=== PATIENT | female | born 1990 | race Caucasian/White ===

== ENCOUNTER 2017-10-04 00:45 | Inpatient (IN) | payer SELFPAY ==
[2017-10-04] MEDS ORDERED: Nalbuphine 10 MG/1 ML Vial IVPUSH PRN (00:59)
[2017-10-04] MEDS ORDERED: Tranexamic Acid 1,000 MG in Sodium Chloride 0.9% 100 ML IV PRN (00:59)
[2017-10-04] MEDS ORDERED: Water For Irrigation,Sterile 1,000 ML Container IRR PRN (00:59)
[2017-10-04] MEDS ORDERED: Lidocaine 1% 50 ML MDV INJECT PRN (00:59)
[2017-10-04] MEDS ORDERED: Carboprost Tromethamine 250 MCG/1 ML Amp IM PRN (00:59)
[2017-10-04] MEDS ORDERED: Butorphanol 1 MG/ML SDV IVPUSH PRN (00:59)
[2017-10-04] MEDS ORDERED: Methylergonovine 0.2 MG/1 ML Amp IM PRN (00:59)
[2017-10-04] MEDS ORDERED: Misoprostol 200 MCG Tab PO PRN (00:59)
[2017-10-04] MEDS ORDERED: Sodium Chloride 0.9% 10 ML Syringe FLUSH PRN (00:59)
[2017-10-04] MEDS ORDERED: Sodium Chloride 0.9% 2.5 ML Syringe FLUSH PRN (00:59)
[2017-10-04] MEDS ORDERED: Oxytocin/0.9 % Sodium Chloride 30 UNIT/500 ML BAG IV SCH (01:00)
[2017-10-04] MEDS ORDERED: Lactated Ringers 1,000 ML IV SCH (01:00)
[2017-10-04] MEDS ORDERED: Witch Hazel Medicated Pads 40/Jar TOP PRN (01:53)
[2017-10-04] MEDS ORDERED: Ibuprofen 400 MG Tab PO PRN (01:53)
[2017-10-04] MEDS ORDERED: Benzocaine/Menthol 20%-0.5% Spray 78 GM Cannister TOP PRN (01:53)
[2017-10-04] MEDS ORDERED: oxyCODONE 5 MG Tab PO PRN (01:53)
[2017-10-04] MEDS ORDERED: Bisacodyl 10 MG Supp RECTAL PRN (01:53)
[2017-10-04] MEDS ORDERED: Acetaminophen 500 MG Tab PO PRN ×2 (01:53)
[2017-10-04] MEDS ORDERED: Lanolin 100% Cream 7 GM Tube TOP PRN (01:53)
[2017-10-04] MEDS ORDERED: Docusate Sodium 100 MG Cap PO PRN (01:53)
--- NOTE | 2017-10-04 01:56 | PCM.LDHP ---
L&D History of Present Illness - General Date of Service: 10/04/17 Admit Problem/Dx: Patient Status Order with Admit Dx/Problem 10/04/17 01:00 Patient Status [ADT] Routine 10/04/17 01:53 Patient Status [ADT] Routine Admission Diagnosis/Problem Admission Diagnosis/Problem Source of Information: Patient History Limitations: Reports: No Limitations - History of Present Illness Pain Score: 8 Improves with: Reports: None Worsens with: Reports: None Associated Symptoms: Reports: N - Related Data Allergies/Adverse Reactions: Allergies Allergy/AdvReac Type Severity Reaction Status Date / Time No Known Allergies Allergy Verified 12/24/14 13:27 Home Medications: Home Meds . [No Known Home Meds] 12/24/14 [History] Past Medical History - Past Health History Medical/Surgical History: Denies Medical/Surgical History H&P Review of Systems - Review of Systems: Review Of Systems: See Below General: Reports: No Symptoms HEENT: Reports: No Symptoms Pulmonary: Reports: No Symptoms Cardiovascular: Reports: No Symptoms Gastrointestinal: Reports: No Symptoms Genitourinary: Reports: No Symptoms Musculoskeletal: Reports: No Symptoms Skin: Reports: No Symptoms Psychiatric: Reports: No Symptoms Neurological: Reports: No Symptoms Hematologic/Lymphatic: Reports: No Symptoms Immunologic: Reports: No Symptoms L&D Exam - Exam Exam: See Below - Vital Signs Weight: 65.771 kg - OB Specific Fundal Height In cm: 36 Contraction Intensity: Moderate to Strong Movement: Active Heart Tones: Present Presentation: Vertex - Lakhani Score Lakhani Score Cervix Position: Anterior Lakhani Score Consistency: Soft Lakhani Score Effacement: >80% Lakhani Score Dilation: > 5 cm Lakhani Score 's Station: +1, +2 Lakhani Score Total: 13 - Exam General: Alert, Oriented HEENT: PERRLA, Conjunctiva Clear, EACs Clear, EOMI, Hearing Intact, Mucosa Moist & [place], Nares Patent, Normal Nasal Septum, Posterior Pharynx Clear, TMs Clear Neck: Supple, Trachea Midline Lungs: Clear to Auscultation, Normal Respiratory Effort Cardiovascular: Regular Rate, Regular Rhythm GI/Abdominal Exam: Normal Bowel Sounds, Soft, Non-Tender, No Organomegaly, No Distention, No Abnormal Bruit, No Mass, Pelvis Stable Rectal Exam: Normal Exam, Normal Rectal Tone Genitourinary: Normal external exam, Normal bimanual exam, Normal speculum exam Back Exam: Normal Inspection, Full Range of Motion Extremities: Normal Inspection, Normal Range of Motion, Non-Tender, No Pedal Edema, Normal Capillary Refill Skin: Warm, Dry, Intact Neurological: Cranial Nerves Intact, Reflexes Equal Bilateral Psychiatric: Alert, Normal Affect, Normal Mood - Patient Data Lab Results Last 24 hrs: Laboratory Results - last 24 hr 10/04/17 Range/Units 00:55 WBC 13.38 H (4.0-11.0) K/uL RBC 3.87 L (4.30-5.90) M/uL Hgb 11.1 L (12.0-16.0) g/dL Hct 33.5 L (36.0-46.0) % MCV 86.6 (80.0-98.0) fL MCH 28.7 (27.0-32.0) pg MCHC 33.1 (31.0-37.0) g/dL RDW Std Deviation 39.9 (28.0-62.0) fl RDW Coeff of Jyotsna 13 (11.0-15.0) % Plt Count 254 (150-400) K/uL MPV 10.40 (7.40-12.00) fL Result Diagrams: 10/04/17 00:55 Problem List Initiated/Reviewed/Updated: Yes Orders Last 24hrs: Active Orders 24 hr Category Date Time Status Patient Status [ADT] Routine ADT 10/04/17 01:53 Ordered Heart Tones [RC] CONTINUOUS Care 10/04/17 01:00 Active Non Stress Test [RC] PER UNIT ROUTINE Care 10/04/17 01:00 Active May Shower [RC] ASDIRECTED Care 10/04/17 01:00 Active May Shower [RC] ASDIRECTED Care 10/04/17 01:53 Ordered Notify Provider [RC] PRN Care 10/04/17 01:00 Active Up ad Emerald [RC] ASDIRECTED Care 10/04/17 01:00 Active Up ad Emerald [RC] ASDIRECTED Care 10/04/17 01:53 Ordered Vaginal Exam [RC] PRN Care 10/04/17 01:00 Active Vital Signs [RC] PER UNIT ROUTINE Care 10/04/17 01:00 Active Vital Signs [RC] PER UNIT ROUTINE Care 10/04/17 01:53 Ordered HEMOGLOBIN/HEMATOCRIT,HH [HEME] Timed Lab 10/05/17 05:11 Ordered TYPE AND SCREEN [BBK] Routine Lab 10/04/17 01:10 Received Acetaminophen [Tylenol Extra Strength] Med 10/04/17 01:53 Ordered 1,000 mg PO Q4H PRN Acetaminophen [Tylenol Extra Strength] Med 10/04/17 01:53 Ordered 500 mg PO Q4H PRN Benzocaine/Menthol [Dermoplast Pain Relief 20%-0.5% Med 10/04/17 01:53 Ordered [place]] 78 gm TOP ASDIRECTED PRN Bisacodyl [Dulcolax] Med 10/04/17 01:53 Ordered 10 mg RECTAL .ONCE PRN Butorphanol [Stadol] Med 10/04/17 00:59 Active 1 mg IVPUSH Q1H PRN Carboprost Tromethamine [Hemabate DS] Med 10/04/17 00:59 Active 250 mcg IM ASDIRECTED PRN Docusate Sodium [Colace] Med 10/04/17 01:53 Ordered 100 mg PO BID PRN Ibuprofen [Motrin] Med 10/04/17 01:53 Ordered 400 mg PO Q4H PRN Ibuprofen [Motrin] Med 10/04/17 01:53 Ordered 800 mg PO Q6H PRN Lactated Ringers [Ringers, Lactated] 1,000 ml Med 10/04/17 01:00 Active IV ASDIRECTED Lanolin [Lansinoh HPA] Med 10/04/17 01:53 Ordered See Dose Instructions TOP ASDIRECTED PRN Lidocaine 1% [Xylocaine 1%] Med 10/04/17 00:59 Active 50 ml INJECT .ONCE PRN Methylergonovine [Methergine] Med 10/04/17 00:59 Active 0.2 mg IM ASDIRECTED PRN Misoprostol [Cytotec] Med 10/04/17 00:59 Active 200 mcg PO .ONCE PRN Nalbuphine [Nubain] Med 10/04/17 00:59 Active 10 mg IVPUSH Q1H PRN Oxytocin/0.9 % Sodium Chloride [Oxytocin 30 Unit/500 ML Med 10/04/17 01:00 Active -NS] 30 unit in 500 ml IV TITRATE Sodium Chloride 0.9% [Saline Flush] Med 10/04/17 00:59 Active 10 ml FLUSH ASDIRECTED PRN Sodium Chloride 0.9% [Saline Flush] Med 10/04/17 00:59 Active 2.5 ml FLUSH ASDIRECTED PRN Tranexamic Acid [Cyklokapron] 1,000 mg Med 10/04/17 00:59 Active Sodium Chloride 0.9% [Normal Saline] 100 ml IV ONETIME Water For Irrigation,Sterile [Sterile Water for Med 10/04/17 00:59 Active Irrigation] 1,000 ml IRR ASDIRECTED PRN [place] Natalia [Tucks] Med 10/04/17 01:53 Ordered 1 pad TOP ASDIRECTED PRN oxyCODONE Med 10/04/17 01:53 Ordered 5 mg PO Q2H PRN Assess Lochia [WOMSER] Per Unit Routine Ot 10/04/17 01:53 Ordered Assess Uterine Involution [WOMSER] Per Unit Routine Ot 10/04/17 01:53 Ordered Scalp Electrode [WOMSER] Per Unit Routine Ot 10/04/17 01:00 Ordered Peripheral IV Discontinue [OM.PC] Routine Ot 10/04/17 01:53 Ordered Peripheral IV Insertion Adult [OM.PC] Routine Ot 10/04/17 01:00 Ordered Resuscitation Status Routine Resus Stat 10/04/17 00:59 Ordered Medication Orders Acetaminophen (Tylenol Extra Strength) 500 mg PO Q4H PRN PRN Reason: Pain Acetaminophen (Tylenol Extra Strength) 1,000 mg PO Q4H PRN PRN Reason: Pain Benzocaine/Menthol (Dermoplast Pain Relief 20%-0.5% [place]) 78 gm TOP ASDIRECTED PRN PRN Reason: Perineal Comfort Measure Butorphanol Tartrate (Stadol) 1 mg IVPUSH Q1H PRN PRN Reason: Pain Last Admin: 10/04/17 01:43 Dose: 1 mg Carboprost Tromethamine (Hemabate Ds) 250 mcg IM ASDIRECTED PRN PRN Reason: Post Hemorrhage Emollient Ointment (Lansinoh Hpa) 0 gm TOP ASDIRECTED PRN PRN Reason: Sore Nipples Lactated Ringer's (Ringers, Lactated) 1,000 mls @ 150 mls/hr IV ASDIRECTED VICKY Last Admin: 10/04/17 00:57 Dose: 500 mls/hr Oxytocin/Sodium Chloride (Oxytocin 30 Unit/500 Ml-Ns) 30 unit in 500 mls @ 999 mls/hr IV TITRATE VICKY Last Admin: 10/04/17 01:38 Dose: 999 mls/hr Tranexamic Acid 1,000 mg/ (Sodium Chloride) 110 mls @ 660 mls/hr IV ONETIME PRN PRN Reason: Bleeding Ibuprofen (Motrin) 400 mg PO Q4H PRN PRN Reason: Pain Ibuprofen (Motrin) 800 mg PO Q6H PRN PRN Reason: Pain Lidocaine HCl (Xylocaine 1%) 50 ml INJECT .ONCE PRN PRN Reason: Laceration repair Methylergonovine Maleate (Methergine) 0.2 mg IM ASDIRECTED PRN PRN Reason: Post Hemorrhage Misoprostol (Cytotec) 200 mcg PO .ONCE PRN PRN Reason: Post Hemorrhage Nalbuphine HCl (Nubain) 10 mg IVPUSH Q1H PRN PRN Reason: Pain (severe 7-10) Oxycodone HCl (Oxycodone) 5 mg PO Q2H PRN PRN Reason: Pain Sodium Chloride (Saline Flush) 10 ml FLUSH ASDIRECTED PRN PRN Reason: Keep Vein Open Sodium Chloride (Saline Flush) 2.5 ml FLUSH ASDIRECTED PRN PRN Reason: Keep Vein Open Sterile Water (Sterile Water For Irrigation) 1,000 ml IRR ASDIRECTED PRN PRN Reason: delivery Witch Natalia (Tucks) 1 pad TOP ASDIRECTED PRN PRN Reason: comfort care Assessment/Plan Comment:: No care in active labor.
[2017-10-04] MEDS: Ibuprofen 800 MG Tab PO PRN ×2 (04:15→11:21)
[2017-10-04 09:47] VITALS: BP 130/59
--- NOTE | 2017-10-04 09:51 | OR ---
SURGEON: Dimitris Crocker MD DATE OF PROCEDURE: 10/04/2017 Ms. Smith is a 26 years old patient, supposedly according to a sketchy history, she is para 1-0-0-1. She had no care in this . She does not know when is her due date. She used multiple and a variety of drugs in this , and she presented to the emergency room with active contractions and she moved later on to Labor and Delivery. The patient at the time she moved to Labor and Delivery, was complete, vertex, with bulging bag of water, and she was about 0 to +1 station. The patient was totally uncooperative, and she totally did not respond to the instruction and repeated instruction and tips from me and the nurses personnel. She continued to move around the bed from one side to one side, closed her leg; however, her contractions, we were able to monitor the baby heart rate but sporadically. Prior to the delivery, we really did not know if we were dealing with a term or . Dr. Kurtz, the top lift nailer, was called to attend the delivery, and the patient in-between yelling and screaming and thrashing and pushing and kicking with her leg with the help of midline episiotomy as performed by me, I was able to accomplish the vaginal delivery of a female fetus. She has cried immediately. The cord clamped and handed to the resuscitating team to resuscitate her. Later on the score reported to be 7 and 9. Placenta delivered spontaneous, complete, and intact, and the area of the episiotomy infiltrated with 1% xylocaine and repaired with 3-0 Vicryl continuous in layers. Instrument count was normal. Estimated blood loss was 250-300 mL in this delivery. heart monitoring was sporadic because the patient was not cooperative and it was from the few minutes of monitoring, it seemed to be a category 1. ASIA / MAURI /[id number]
--- NOTE | 2017-10-04 14:03 | PCM.PNPP ---
- General Info Date of Service: 10/04/17 Functional Status: Reports: Pain Controlled - Review of Systems General: Reports: No Symptoms HEENT: Reports: No Symptoms Pulmonary: Reports: No Symptoms Cardiovascular: Reports: No Symptoms Gastrointestinal: Reports: No Symptoms Genitourinary: Reports: No Symptoms Musculoskeletal: Reports: No Symptoms Skin: Reports: No Symptoms Neurological: Reports: No Symptoms Psychiatric: Reports: No Symptoms - General Info Date of Service: 10/04/17 - Patient Data Vital Signs - Most Recent: Last Vital Signs Temp 36.7 C 10/04/17 09:42 Pulse 83 10/04/17 08:00 Resp 20 10/04/17 08:00 BP 130/59 L 10/04/17 08:00 Pulse Ox 98 10/04/17 08:00 Weight - Most Recent: 65.771 kg Lab Results - Last 24 Hours: Laboratory Results - last 24 hr 10/04/17 10/04/17 10/04/17 Range/Units 00:55 01:10 05:25 WBC 13.38 H (4.0-11.0) K/uL RBC 3.87 L (4.30-5.90) M/uL Hgb 11.1 L (12.0-16.0) g/dL Hct 33.5 L (36.0-46.0) % MCV 86.6 (80.0-98.0) fL MCH 28.7 (27.0-32.0) pg MCHC 33.1 (31.0-37.0) g/dL RDW Std Deviation 39.9 (28.0-62.0) fl RDW Coeff of Jyotsna 13 (11.0-15.0) % Plt Count 254 (150-400) K/uL MPV 10.40 (7.40-12.00) fL Urine Opiates Screen NEGATIVE (NEGATIVE) Ur Oxycodone Screen NEGATIVE (NEGATIVE) Urine Methadone Screen NEGATIVE (NEGATIVE) Ur Barbiturates Screen NEGATIVE (NEGATIVE) Ur Phencyclidine Scrn NEGATIVE (NEGATIVE) Ur Amphetamine Screen NEGATIVE (NEGATIVE) U Methamphetamines Scrn POSITIVE (NEGATIVE) U Benzodiazepines Scrn NEGATIVE (NEGATIVE) U Cocaine Metab Screen NEGATIVE (NEGATIVE) U Marijuana (THC) Screen NEGATIVE (NEGATIVE) Blood Type A POSITIVE Antibody Screen NEGATIVE Med Orders - Current: Current Medications Acetaminophen (Tylenol Extra Strength) 500 mg PO Q4H PRN PRN Reason: Pain Last Admin: 10/04/17 13:06 Dose: 500 mg Acetaminophen (Tylenol Extra Strength) 1,000 mg PO Q4H PRN PRN Reason: Pain Last Admin: 10/04/17 08:05 Dose: 1,000 mg Benzocaine/Menthol (Dermoplast Pain Relief 20%-0.5% [place]) 78 gm TOP ASDIRECTED PRN PRN Reason: Perineal Comfort Measure Bisacodyl (Dulcolax) 10 mg RECTAL .ONCE PRN PRN Reason: Constipation Butorphanol Tartrate (Stadol) 1 mg IVPUSH Q1H PRN PRN Reason: Pain Last Admin: 10/04/17 01:43 Dose: 1 mg Carboprost Tromethamine (Hemabate Ds) 250 mcg IM ASDIRECTED PRN PRN Reason: Post Hemorrhage Docusate Sodium (Colace) 100 mg PO BID PRN PRN Reason: Constipation Emollient Ointment (Lansinoh Hpa) 0 gm TOP ASDIRECTED PRN PRN Reason: Sore Nipples Lactated Ringer's (Ringers, Lactated) 1,000 mls @ 150 mls/hr IV ASDIRECTED VICKY Last Admin: 10/04/17 00:57 Dose: 500 mls/hr Oxytocin/Sodium Chloride (Oxytocin 30 Unit/500 Ml-Ns) 30 unit in 500 mls @ 999 mls/hr IV TITRATE [facility] Last Admin: 10/04/17 01:38 Dose: 999 mls/hr Tranexamic Acid 1,000 mg/ (Sodium Chloride) 110 mls @ 660 mls/hr IV ONETIME PRN PRN Reason: Bleeding Ibuprofen (Motrin) 400 mg PO Q4H PRN PRN Reason: Pain Ibuprofen (Motrin) 800 mg PO Q6H PRN PRN Reason: Pain Last Admin: 10/04/17 11:21 Dose: 800 mg Lidocaine HCl (Xylocaine 1%) 50 ml INJECT .ONCE PRN PRN Reason: Laceration repair Last Admin: 10/04/17 01:45 Dose: 50 ml Methylergonovine Maleate (Methergine) 0.2 mg IM ASDIRECTED PRN PRN Reason: Post Hemorrhage Misoprostol (Cytotec) 200 mcg PO .ONCE PRN PRN Reason: Post Hemorrhage Nalbuphine HCl (Nubain) 10 mg IVPUSH Q1H PRN PRN Reason: Pain (severe 7-10) Oxycodone HCl (Oxycodone) 5 mg PO Q2H PRN PRN Reason: Pain Sodium Chloride (Saline Flush) 10 ml FLUSH ASDIRECTED PRN PRN Reason: Keep Vein Open Sodium Chloride (Saline Flush) 2.5 ml FLUSH ASDIRECTED PRN PRN Reason: Keep Vein Open Sterile Water (Sterile Water For Irrigation) 1,000 ml IRR ASDIRECTED PRN PRN Reason: delivery Amairani Fisher (Tucks) 1 pad TOP ASDIRECTED PRN PRN Reason: comfort care - Interaction Infant Disposition, : Not Applicable - Recovery Exam Fundal Tone: Firm Fundal Level: 1 Fingerbreadths Below Umbilicus Fundal Placement: Midline Lochia Amount: Scant Lochia Color: Rubra/Red Perineum Description: Intact, Minimal Bruising/Swelling Episiotomy/Laceration: Approximated Bladder Status: Voiding Urinary Elimination: Voided - Exam General: Alert, Oriented HEENT: Pupils Equal Neck: Supple Lungs: Clear to Auscultation, Normal Respiratory Effort Cardiovascular: Regular Rate, Regular Rhythm GI/Abdominal Exam: Normal Bowel Sounds, Soft, Non-Tender, No Organomegaly, No Distention, No Abnormal Bruit, No Mass, Pelvis Stable Extremities: Normal Inspection, Normal Range of Motion, Non-Tender, No Pedal Edema, Normal Capillary Refill Skin: Warm, Dry, Intact Wound/Incisions: Healing Well Neurological: No New Focal Deficit Psy/Mental Status: Alert, Normal Affect, Normal Mood - Problem List Review Problem List Initiated/Reviewed/Updated: Yes - My Orders Last 24 Hours: My Active Orders 10/04/17 00:59 Butorphanol [Stadol] 1 mg IVPUSH Q1H PRN Carboprost Tromethamine [Hemabate DS] 250 mcg IM ASDIRECTED PRN Lidocaine 1% [Xylocaine 1%] 50 ml INJECT .ONCE PRN Methylergonovine [Methergine] 0.2 mg IM ASDIRECTED PRN Misoprostol [Cytotec] 200 mcg PO .ONCE PRN Nalbuphine [Nubain] 10 mg IVPUSH Q1H PRN Sodium Chloride 0.9% [Saline Flush] 10 ml FLUSH ASDIRECTED PRN Sodium Chloride 0.9% [Saline Flush] 2.5 ml FLUSH ASDIRECTED PRN Tranexamic Acid [Cyklokapron] 1,000 mg Sodium Chloride 0.9% [Normal Saline] 100 ml IV ONETIME Water For Irrigation,Sterile [Sterile Water for Irrigation] 1,000 ml IRR ASDIRECTED PRN Resuscitation Status Routine 10/04/17 01:00 May Shower [RC] ASDIRECTED Up ad Emerald [RC] ASDIRECTED Vital Signs [RC] PER UNIT ROUTINE Lactated Ringers [Ringers, Lactated] 1,000 ml IV ASDIRECTED Oxytocin/0.9 % Sodium Chloride [Oxytocin 30 Unit/500 ML-NS] 30 unit in 500 ml IV TITRATE Scalp Electrode [WOMSER] Per Unit Routine Peripheral IV Insertion Adult [OM.PC] Routine 10/04/17 01:53 Patient Status [ADT] Routine September Shower [RC] ASDIRECTED Up ad Emerald [RC] ASDIRECTED Vital Signs [RC] PER UNIT ROUTINE Acetaminophen [Tylenol Extra Strength] 1,000 mg PO Q4H PRN Acetaminophen [Tylenol Extra Strength] 500 mg PO Q4H PRN Benzocaine/Menthol [Dermoplast Pain Relief 20%-0.5% [place]] 78 gm TOP ASDIRECTED PRN Bisacodyl [Dulcolax] 10 mg RECTAL .ONCE PRN Docusate Sodium [Colace] 100 mg PO BID PRN Ibuprofen [Motrin] 400 mg PO Q4H PRN Ibuprofen [Motrin] 800 mg PO Q6H PRN Lanolin [Lansinoh HPA] See Dose Instructions TOP ASDIRECTED PRN Witch Natalia [Tucks] 1 pad TOP ASDIRECTED PRN oxyCODONE 5 mg PO Q2H PRN Assess Lochia [WOMSER] Per Unit Routine Assess Uterine Involution [WOMSER] Per Unit Routine Peripheral IV Discontinue [OM.PC] Routine 10/04/17 Breakfast Regular Diet [DIET] 10/05/17 05:11 HEMOGLOBIN/HEMATOCRIT,HH [HEME] Timed - Assessment Assessment:: Gustavon well like to go home. - Plan Plan:: No care in active labor.
== END 2017-10-04 16:00 | disposition home or self-care (01) | DRG 775 ==
LOC: MW.OBCHECK 00:45 → MW.OB 00:48 → MW.OBCHECK 01:00 → MW.OB 01:00 → OBSVTOIN 01:38 → MW.OB 11:47
PROVIDERS: ADMIT Obstetrics & Gynecology; ATTEND Obstetrics & Gynecology
PROC: 10E0XZZ Delivery of Products of Conception, External Approach (ICD-10-PCS; principal; 2017-10-04)
PROC: 0W8NXZZ Division of Female Perineum, External Approach (ICD-10-PCS; 2017-10-04)
DX: O70.0 First degree perineal laceration during delivery (principal); O09.30 Supervision of pregnancy with insufficient antenatal care, unspecified trimester; Z3A.00 Weeks of gestation of pregnancy not specified; Z37.0 Single live birth
CPT/HCPCS: 36415; 59025; 59409; 80305; 85027; 86850; 86900; 86901; A9270-GY; J0595; J2590; J7120

== ENCOUNTER 2023-09-20 10:24 | Emergency (ER) | payer MEDICAID ==
[2023-09-20 10:34] VITALS: BP 133/74; PULSE 67
[2023-09-20] MEDS: Sodium Chloride 0.9% 1,000 ML IV ONE (10:49)
[2023-09-20] MEDS: Morphine 4 MG/ML Syringe IVPUSH ONE (10:49)
[2023-09-20] MEDS: Ondansetron 4 MG/2 ML SDV IVPUSH ONE (10:49)
[2023-09-20 10:51] LABS: BASOPHILS ABSOLUTE AUTO 0.04 K/uL (0.00-0.20); BASOPHILS PERCENT AUTO 0.3 % (0.0-1.0); EOSINOPHILS ABSOLUTE AUTO 0.11 K/uL (0.00-0.45); HEMATOCRIT 37.3 % (37.0-47.0); HEMOGLOBIN 12.5 g/dL (12.0-16.0); IMMATURE GRAN ABSOLUTE AUTO 0.02 K/uL (0.00-0.05); IMMATURE GRAN PERCENT AUTO 0.2 % (0.0-0.4); LYMPHOCYTES ABSOLUTE AUTO 1.67 K/uL (1.00-4.80); LYMPHOCYTES PERCENT AUTO 14.5 % (24.0-44.0); MEAN CORPUSCULAR HEMOGLOBIN 28.7 pg (28.0-32.0); MEAN CORPUSCULAR HGB CONC 33.5 g/dL (32.0-36.0); MEAN CORPUSCULAR VOLUME 85.6 fL (83.0-99.0); MEAN PLATELET VOLUME 9.7 fL (9.4-12.3); MONOCYTES ABSOLUTE AUTO 0.68 K/uL (0.00-0.80); MONOCYTES PERCENT AUTO 5.9 % (0.0-8.0); NEUTROPHILS ABSOLUTE AUTO 9.03 K/uL (1.80-7.70); NEUTROPHILS PERCENT AUTO 78.1 % (41.0-71.0); PLATELET COUNT,PLT 268 K/uL (150-400); RED BLOOD CELL COUNT 4.36 M/uL (4.10-5.30); WHITE BLOOD CELL COUNT,WBC 11.55 K/uL (3.9-11.3)
[2023-09-20 11:30] LABS: ALBUMIN 3.4 g/dL (3.4-5.0); BILIRUBIN TOTAL 1.3 mg/dL (0.2-1.0); CALCIUM 9.7 mg/dL (8.5-10.1); CARBON DIOXIDE,CO2 26.1 mmol/L (21.0-32.0); CREATININE 1.1 mg/dL (0.6-1.0); EST CRCL DRUG DOSING (CG) 80.87 mL/min; POTASSIUM,K 3.7 mmol/L (3.5-5.1); PROTEIN TOTAL,TP 6.8 g/dL (6.4-8.2)
[2023-09-20] MEDS: Iopamidol 755 MG/ML 200 ML Multipack Bottle IVPUSH ONE (13:29)
[2023-09-20] MEDS: Ketorolac 30 MG/ML SDV IVPUSH ONE (14:03)
== END 2023-09-20 14:04 | disposition left against medical advice (07) ==
LOC: MW.ED 10:24
DX: K85.90 Acute pancreatitis without necrosis or infection, unspecified (principal); R74.01 Elevation of levels of liver transaminase levels; Z75.8 Other problems related to medical facilities and other health care; Z53.29 Procedure and treatment not carried out because of patient's decision for other reasons; F17.210 Nicotine dependence, cigarettes, uncomplicated
CPT/HCPCS: 36415; 74177; 80053; 83690; 84703; 85025; 96361; 96374; 96375; 99284; J2270; J2405; J7030; Q9967

== ENCOUNTER 2024-03-16 15:57 | Emergency (ER) | payer MEDICAID ==
[2024-03-16 16:46] LABS: BASOPHILS ABSOLUTE AUTO 0.04 K/uL (0.00-0.20); BASOPHILS PERCENT AUTO 0.4 % (0.0-1.0); EOSINOPHILS ABSOLUTE AUTO 0.06 K/uL (0.00-0.45); EOSINOPHILS PERCENT AUTO 0.6 % (0.0-6.0); HEMATOCRIT 34.2 % (37.0-47.0); HEMOGLOBIN 11.6 g/dL (12.0-16.0); IMMATURE GRAN ABSOLUTE AUTO 0.04 K/uL (0.00-0.05); IMMATURE GRAN PERCENT AUTO 0.4 % (0.0-0.4); LYMPHOCYTES ABSOLUTE AUTO 2.27 K/uL (1.00-4.80); LYMPHOCYTES PERCENT AUTO 23.6 % (24.0-44.0); MEAN CORPUSCULAR HEMOGLOBIN 30.1 pg (28.0-32.0); MEAN CORPUSCULAR HGB CONC 33.9 g/dL (32.0-36.0); MEAN CORPUSCULAR VOLUME 88.8 fL (83.0-99.0); MEAN PLATELET VOLUME 9.5 fL (9.4-12.3); MONOCYTES ABSOLUTE AUTO 0.44 K/uL (0.00-0.80); MONOCYTES PERCENT AUTO 4.6 % (0.0-8.0); NEUTROPHILS ABSOLUTE AUTO 6.76 K/uL (1.80-7.70); NEUTROPHILS PERCENT AUTO 70.4 % (41.0-71.0); PLATELET COUNT,PLT 298 K/uL (150-400); RED BLOOD CELL COUNT 3.85 M/uL (4.10-5.30); WHITE BLOOD CELL COUNT,WBC 9.61 K/uL (3.9-11.3)
[2024-03-16 16:56] LABS: A/G RATIO 1.2 (0.9-1.6); ALBUMIN 3.4 g/dL (3.4-5.0); BILIRUBIN TOTAL 0.4 mg/dL (0.2-1.0); CALCIUM 8.2 mg/dL (8.5-10.1); CARBON DIOXIDE,CO2 28.3 mmol/L (21.0-32.0); CREATININE 0.7 mg/dL (0.6-1.0); EST CRCL DRUG DOSING (CG) 125.92 mL/min; MAGNESIUM 1.8 mg/dL (1.8-2.4); PROTEIN TOTAL,TP 6.3 g/dL (6.4-8.2)
[2024-03-16] MEDS: Sodium Chloride 0.9% 1,000 ML IV ONE (16:58)
[2024-03-16 17:01] LABS: POTASSIUM,K 3.8 mmol/L (3.5-5.1)
[2024-03-16 18:31] LABS: APPEARANCE,URINE CLEAR; BILIRUBIN,URINE NEGATIVE (NEGATIVE); COLOR,URINE YELLOW; GLUCOSE,URINE NEGATIVE (NEGATIVE); KETONES,URINE NEGATIVE (NEGATIVE); LEUKOCYTE ESTERASE,URINE NEGATIVE (NEGATIVE); NITRITE,URINE NEGATIVE (NEGATIVE); OCCULT BLOOD,URINE NEGATIVE (NEGATIVE); PROTEIN,URINE NEGATIVE (NEGATIVE); UROBILINOGEN,URINE 0.2 EU/dL (<2.0)
[2024-03-16] MEDS: Acetaminophen 500 MG Tab PO ONE (18:33)
[2024-03-16 19:12] LABS: CANDIDA DNA PROBE NEGATIVE (NEGATIVE); GARDNERELLA DNA PROBE POSITIVE (NEGATIVE); TRICHOMONAS DNA PROBE NEGATIVE (NEGATIVE)
[2024-03-16 19:53] LABS: C. TRACHOMATIS BY PCR NOT DETECTED; N. GONORRHOEAE BY PCR NOT DETECTED
[2024-03-16 20:17] VITALS: BP 104/54; PULSE 86
== END 2024-03-16 20:14 | disposition home or self-care (01) ==
LOC: MW.ED 15:57
DX: O23.591 Infection of other part of genital tract in pregnancy, first trimester (principal); O23.41 Unspecified infection of urinary tract in pregnancy, first trimester; Z75.8 Other problems related to medical facilities and other health care; Z3A.14 14 weeks gestation of pregnancy
CPT/HCPCS: 36415; 76817; 80053; 81003; 83690; 83735; 84702; 84703; 85025; 87480; 87491; 87510; 87591; 87660; 96360; 96361; 99284; A9270; J7030